=== PATIENT | female | born 1945 | race African-American/Black ===

== ENCOUNTER 2023-08-02 16:01 | Emergency (ER) | payer OTHER ==
[~2023-08-02] VITALS: Ht 177.8 cm; Wt 91.0 kg
[2023-08-02 16:09] VITALS: O2SAT 98
[2023-08-02] MEDS ORDERED: ACETAMINOPHEN 325MG TABLET PO ONE (18:30)
[2023-08-02] MEDS ORDERED: CAPS42.514 TP (20:34)
[2023-08-02] MEDS ORDERED: KETOROLAC 60MG/2ML VIAL IM STA (20:56)
[2023-08-02 21:40] VITALS: BP 133/74; PULSE 84; RESP 18; TEMP 98.8
== END 2023-08-03 03:36 | disposition home or self-care (01) ==
LOC: ER 16:01
DX: M19.012 Primary osteoarthritis, left shoulder (principal); I10 Essential (primary) hypertension
CPT/HCPCS: 99285; 72100; 72170; 73030; 73562; 96372; J1885